=== PATIENT | female | born 2005 | race Caucasian/White ===

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

== ENCOUNTER 2024-05-29 10:23 | Emergency (ER) | payer BC, SELFPAY ==
[2024-05-29 10:23] VITALS: BP 134/80; PULSE 85; RESP 18; TEMP 37; O2SAT 99; BMI 22.2
--- NOTE | 2024-05-29 10:36 | ED.VIS.DENTA ---
HPI History of Present Illness Chief Complaint: Dental Detail of Chief Complaint: Dental pain Informant: patient Narrative Narrative: Patient presents with left abdominal pain that started 4 days ago. Denies any trauma to her teeth. Patient denies fever. She states last evening she started having vomiting and threw up about 5 or 6 times and also started having diarrhea. She did not know if she developed an infection in her teeth and presents for evaluation. She denies any abdominal pain. She denies urinary symptoms. Denies sick contacts. PFSH [facility] Medical History (Updated 05/29/24 @ 10:[address] Ambar Weaver, DO) Irritable bowel syndrome with constipation Home Medications ?Medication ?Instructions ?Recorded ?Last Taken ?Type drospirenone 3 mg-ethinyl 1 tab PO DAILY PRN CONTROL 01/07/22 Unknown History estradiol 0.02 mg tablet (Vestura (28)) linaclotide 145 mcg capsule 145 mcg PO DAILY 01/07/22 Unknown History (Linzess) hydrocodone-acetaminophen 5-325mg 1 tab PO Q6H PRN PRN Pain 3 days 09/26/23 Unknown Rx 5mg-325mg #10 TABLETS ondansetron 4 mg disintegrating 4 mg PO Q8H PRN PRN Nausea #10 tabs 09/26/23 Unknown Rx tablet clindamycin HCl 300 mg capsule 300 mg PO Q6H #40 CAPSULES 05/29/24 Unknown Rx (Cleocin HCl) ondansetron 4 mg disintegrating 4 mg PO Q8H PRN PRN Nausea #10 tabs 05/29/24 Unknown Rx tablet oxycodone-acetaminophen 5 mg-325 1 tab PO Q8H PRN pain 3 days #10 05/29/24 Unknown Rx mg tablet (Percocet) tabs Allergy/AdvReac Type Severity Reaction Status Date / Time No Known Allergies Allergy Verified 09/26/23 17:05 Family History (Updated 09/26/23 @ 18:21 by Thong Garrett) Other Heart disease Surgical History no surgical history Social History household members: significant other and children Smoking Status: Never smoker ROS ROS ED Review of Systems ROS Unobtainable: other Constitutional Constitutional ED: Reports lethargy; Denies chills, fever(s), sweats or weight loss Eyes Eyes: Denies blurry vision, change in vision or diplopia ENT ENT ED: Reports other Details: Dental pain ; Denies rhinorrhea or sore throat Cardiovascular Cardiovascular: Denies chest pain, orthopnea or racing heartbeat Respiratory/Chest Respiratory/Chest: Denies cough, dyspnea, dyspnea on exertion, orthopnea or sputum Gastrointestinal Gastrointestinal: Reports diarrhea, nausea and vomiting; Denies abdominal pain Genitourinary Genitourinary ED: Denies dysuria, hematuria or urinary frequency Musculoskeletal Musculoskeletal: Denies arthralgias, back pain, myalgias or neck pain Integumentary Denies abscess, Abrasions or rash Neurologic Neurologic: Denies headache(s) or weakness Psychiatric Psychiatric: Denies anxiety, depression or suicidal thoughts Endocrine Endocrinology: Denies polydipsia, polyphagia or polyuria Hematologic/Lymphatic Hematologic/Lymphatic: Denies easy bleeding, easy bruising or lymphadenopathy Allergic/Immunologic Allergic/Immunologic ED: Denies mouth swelling, tongue swelling or urticaria EXAM Physical Exam Const Vital Signs: 05/29/24 10:23 Temperature 98.6 F Temperature Source Oral Pulse Rate 85 Respiratory Rate 18 Blood Pressure 134/80 H Blood Pressure Mean 98 Pulse Ox 99 Oxygen Delivery Method Room Air Positive well nourished and well developed General Appearance ED: well developed and NAD HEENT Reports TM's clear and moist mucous membranes HEENT Narrative: Tenderness palpation to tooth #10 left upper incisor. There is no gingival erythema or abscess noted. There is no facial swelling or cellulitic changes. normocephalic and atraumatic; Negative for trauma or tenderness Tympanic Membrane ED: Yes TM's clear Eyes PERRL and EOMs intact bilaterally General Eye ED: Negative for pale conjunctiva or scleral icterus Neck no lymphadenopathy, supple and no JVD General: Negative for tenderness Chest Wall inspection of chest normal and palpation of chest normal Chest: Negative for tenderness Resp normal respiratory effort and clear to auscultation bilaterally Effort and Inspection: Negative for respiratory distress or pain with movement Auscultation: Negative for rhonchi, wheezes or diminished lung sounds Cardio regular rate, regular rhythm, S1 normal heart sound, S2 normal heart sound and no murmurs Peripheral Pulses: pulses 2+ throughout GI normal to inspection, nondistended, normoactive bowel sounds, soft to palpation, non-tender, non-distended and no masses Back/Spine no CVA tenderness and no thoracic nor lumbar tenderness Extremity normal to inspection General Extremety ED: Negative for edema General Extremity: Negative for edema Neuro oriented x3, CN's II-XII intact bilaterally, no sensory deficits noted and gait normal Sensorium / Orientation: awake, alert, oriented to person, oriented to place and oriented to time Motor Exam: strength 5/5 throughout and strength abnormal Psych mental status grossly normal Skin no rashes or lesions noted and no wounds MDM MDM MDM Narrative Medical decision making narrative: Patient presents with dental pain. Also started with vomiting and diarrhea last evening. Clinically I do not feel the 2 are related. Will start her on clindamycin and give Percocet for pain and advised to follow-up with the dentist. I suspect she likely also has a viral gastroenteritis. Will also give a prescription for Zofran. Discharge Plan Triage Chief Complaint: Dental ED Provider: Ambar Weaver Dx/Rx/DC Orders Clinical Impression: Pain, dental, Viral gastroenteritis Instructions: ED Dental Pain, ED Gastroenteritis, Viral (Adult) Prescriptions: New clindamycin HCl [Cleocin HCl] 300 mg capsule 300 mg PO Q6H Qty: 40 0RF oxycodone-acetaminophen [Percocet] 5-325 mg tablet 1 tab PO Q8H PRN (Reason: pain) 3 Days Qty: 10 0RF ondansetron 4 mg tablet,disintegrating 4 mg PO Q8H PRN PRN (Reason: Nausea) Qty: 10 0RF No Action drospirenone-ethinyl estradiol [Vestura (28)] 3-0.02 mg tablet 1 tab PO DAILY PRN (Reason: CONTROL) Patient Comments: TAKE 1 TABLET BY MOUTH EVERY DAY Linzess 145 mcg capsule 145 mcg PO DAILY hydrocodone-acetaminophen 5-325 mg tablet 1 tab PO Q6H PRN PRN (Reason: Pain) 3 Days Qty: 10 0RF ondansetron 4 mg tablet,disintegrating 4 mg PO Q8H PRN PRN (Reason: Nausea) Qty: 10 0RF Primary Care Provider: Lawrence Matias Referrals: Lawrence Matias MD [Primary Care Provider] - Activity Restrictions/Additional Instructions: Follow-up with a dentist at the earliest possible time Print Language: Indonesian Disposition Disposition: Home, Self Care
[2024-05-29] MEDS: Ondansetron ODT 4 MG Tablet PO (10:38)
[2024-05-29] MEDS: oxyCODONE 5 MG Tablet PO (10:38)
[2024-05-29] MEDS: Clindamycin HCl 150 MG Capsule 300 MG PO (10:38)
[2024-05-29 10:46] VITALS: BP 130/70; PULSE 70; RESP 16; TEMP 37; O2SAT 99
== END 2024-05-29 10:52 | disposition home or self-care (01) ==
LOC: ED 10:49
PROVIDERS: Emergency Provider Emergency Medicine; PCP Family Medicine; Visit Provider Emergency Medicine
DX: A08.4 Viral intestinal infection, unspecified (principal); K08.89 Other specified disorders of teeth and supporting structures
CPT/HCPCS: 99283

== ENCOUNTER 2024-05-30 02:28 | Emergency (ER) | payer BC, SELFPAY ==
[2024-05-30 02:29] VITALS: BP 141/88; PULSE 76; RESP 16; TEMP 36.7; O2SAT 98; BMI 22.7
[2024-05-30 02:32] VITALS: BP 142/82; PULSE 78; RESP 16; TEMP 36.7; O2SAT 98
--- NOTE | 2024-05-30 02:40 | EDS_ITS ---
HPI History of Present Illness Chief Complaint: Nausea/Vomiting Informant: patient Narrative Narrative: 18-year-old female presenting to the emergency room following. Patient states that she came to the emergency room this morning and she had some swelling on the roof of her mouth that is not worse. She states that they told me nothing was wrong and they did not have an infection they sent me home with some Zofran for my vomiting. She states they tried to tell me I had the stomach flu. Looking at the note I see that he did feel that there was a dental infection and they prescribed her clindamycin as well as Percocet. She followed up with a dentist today and they are recommending a root canal. She also has been having diarrhea and states I also have IBS and that is not any different. Patient does not have subjective fever at home. She states that this evening the Zofran wore off and she began to vomit again. She states she took 2 Zofran after that and continues to vomit. Patient denies any prior abdominal surgery. [facility] Medical History Marijuana use Irritable bowel syndrome with constipation Home Medications ?Medication ?Instructions ?Recorded ?Last Taken ?Type drospirenone 3 mg-ethinyl 1 tab PO DAILY PRN CON TROL 01/07/22 Unknown History estradiol 0.02 mg tablet (Vestura (28)) ondansetron 4 mg disintegrating 4 mg PO Q8H PRN PRN Na usea #10 tabs 09/26/23 Unknown Rx tablet clindamycin HCl 300 mg capsule 300 mg PO Q6H #40 CAPSU LES 05/29/24 Unknown Rx (Cleocin HCl) ondansetron 4 mg disintegrating 4 mg PO Q8H PRN PRN Na usea #10 tabs 05/29/24 Unknown Rx tablet oxycodone-acetaminophen 5 mg-325 1 tab PO Q8H PRN DENT AL PAIN 3 05/29/24 Unknown Rx mg tablet (Percocet) days #10 tabs Allergy/AdvReac Type Severity Reaction Status Date / Time No Known Allergies Allergy Verified 05/30/24 02:29 Family History Other Heart disease Social History household members: significant other and children Smoking Status: Current every day smoker tobacco type: cigarettes and e- cigarettes ROS ROS ED Constitutional Constitutional ED: Denies chills or weight loss Eyes Eyes: Denies change in vision or diplopia ENT ENT ED: Reports other Details: Dental pain roof of mouth swelling ; Denies ear pain, rhinorrhea or sore throat Cardiovascular Cardiovascular: Denies chest pain, orthopnea, palpitations or racing heartbeat Respiratory/Chest Respiratory/Chest: Denies cough, dyspnea or orthopnea Gastrointestinal Gastrointestinal: Reports diarrhea, nausea and vomiting; Denies abdominal pain Genitourinary Genitourinary ED: Denies dysuria, hematuria or urinary frequency Musculoskeletal Musculoskeletal: Denies arthralgias or myalgias Integumentary Denies abscess or rash Neurologic Neurologic: Denies headache(s) or weakness Psychiatric Psychiatric: Denies anxiety, depression, suicidal ideation or suicidal thoughts Endocrine Endocrinology: Denies polydipsia, polyphagia or polyuria Allergic/Immunologic Allergic/Immunologic ED: Denies mouth swelling, tongue swelling or urticaria EXAM Physical Exam Narrative Exam Narrative: Well-appearing 18-year-old sitting comfortably in the bed in no apparent distress. She has noted to not be tachycardic or hypotensive. Const Vital Signs: 05/30/24 02:29 05/30/24 02:32 Temperature 98.1 F 98.1 F Temperature Source Oral Oral Pulse Rate 76 78 Respiratory Rate 16 16 Blood Pressure 141/88 H 142/82 H Blood Pressure Mean 105 102 Pulse Ox 98 98 Oxygen Delivery Method Room Air Room Air Positive well nourished and well developed General Appearance ED: well developed and NAD HEENT Reports normocephalic, head/scalp atraumatic and moist mucous membranes HEENT Narrative: There are some focal swelling on the roof of the mouth just near the 1011 tooth. There are some mild gum swelling on the anterior gumline as well. I do not appreciate significant erythema. Is not fluctuant. There is no trismus. Floor the mouth is soft. No overlying facial erythema is noted. Eyes PERRL and EOMs intact bilaterally Neck no lymphadenopathy, supple and no JVD Resp normal respiratory effort and clear to auscultation bilaterally Cardio regular rate, regular rhythm and no murmurs GI normal to inspection, nondistended, normoactive bowel sounds and non-tender Palpation: soft Back/Spine no CVA tenderness and normal ROM Extremity normal to inspection General Extremety ED: Negative for edema General Extremity: Negative for edema Neuro oriented x3 and CN's II-XII intact bilaterally Sensorium / Orientation: alert Motor Exam: strength 5/5 throughout Psych mental status grossly normal Mood & Affect: Negative for depressed or tearful Skin no rashes or lesions noted and no wounds MDM MDM MDM Narrative Medical decision making narrative: Differential diagnosis includes dental abscess Crispin's angina facial cellulitis gastroenteritis team medication action dehydration electrolyte abnormalities acute kidney injury pancreatitis biliary colic Patient is afebrile. She is not tachycardic or hypotensive. Moist mucous membranes. There is evidence of dental infection. Patient blood work shows a white count of 12.7 hemoglobin is 12.7. test is negative. Normal liver enzymes normal lipase. Normal BUN/creatinine. Glucose of 111. Patient received Toradol as well as Zofran. She passed p.o. challenge. She continue home medications follow-up with dentistry History & Record Review Discussion w/independent historian: Patient Additional record(s) reviewed:: Prior ED visit Lab Data Attestation: I reviewed the patient's lab results. Labs: Laboratory Results - last 24 hr 05/30/24 02:48 WBC 12.7 H RBC 4.42 Hgb 12.7 Hct 40.3 MCV 91.2 MCH 28.7 MCHC 31.5 L RDW Std Deviation 49.5 H RDW Coeff of Angelito 14.7 H Plt Count 161 MPV 9.8 Immature Gran % (Auto) 0.300 Neut % (Auto) 74.3 H Lymph % (Auto) 15.2 L [place] % (Auto) 9.3 Eos % (Auto) 0.6 Baso % (Auto) 0.3 Absolute Neuts (auto) 9.5 H Absolute Lymphs (auto) 1.93 Nucleated RBC % 0 Sodium 138 Potassium 4.0 Chloride 107 Carbon Dioxide 18.3 L Anion Gap 12 BUN 9 Creatinine 0.82 Estim Creat Clear Calc 107.31 Est GFR (MDRD) Non-Af 105 BUN/Creatinine Ratio 10.8 Glucose 111 H Calcium 9.3 Total Bilirubin 0.31 Direct Bilirubin 0.15 AST 21 ALT 15 Alkaline Phosphatase 52 Total Protein 6.8 Albumin 3.8 Globulin 3.0 Lipase 18 Serum , Qual NEGATIVE Discharge Plan Triage Chief Complaint: Nausea/Vomiting Other Complaint: Abscess ED Provider: Sharath Butts Dx/Rx/DC Orders Clinical Impression: Vomiting, Abscess, dental Instructions: Dental Abscess, ED Vomiting (Adult) Prescriptions: No Action drospirenone-ethinyl estradiol [Vestura (28)] 3-0.02 mg tablet 1 tab PO DAILY PRN (Reason: CONTROL) Patient Comments: TAKE 1 TABLET BY MOUTH EVERY DAY ondansetron 4 mg tablet,disintegrating 4 mg PO Q8H PRN PRN (Reason: Nausea) Qty: 10 0RF clindamycin HCl [Cleocin HCl] 300 mg capsule 300 mg PO Q6H Qty: 40 0RF oxycodone-acetaminophen [Percocet] 5-325 mg tablet 1 tab PO Q8H PRN (Reason: DENTAL PAIN) 3 Days Qty: 10 0RF ondansetron 4 mg tablet,disintegrating 4 mg PO Q8H PRN PRN (Reason: Nausea) Qty: 10 0RF Primary Care Provider: Lawrence Matias Referrals: Lawrence Matias MD [Primary Care Provider] - As Needed Activity Restrictions/Additional Instructions: Be sure to follow-up with dentistry. Continue your home medications. Zofran as needed for vomiting Print Language: Cambodian Disposition Disposition: Home, Self Care
[2024-05-30] MEDS: Ondansetron 4 MG/2 ML Vial IV (02:49)
[2024-05-30] MEDS: Ketorolac 30 MG/ML Syringe IV (02:49)
[2024-05-30 03:29] LABS: AST(SGOT) 21 U/L (<=31); Alanine Aminotransfer ALT/SGPT 15 U/L (<=34); Albumin, Serum 3.8 g/dL (3.5-5.0); Alkaline Phosphatase 52 U/L (35-104); Anion Gap 12 (5-15); BUN 9 mg/dL (4-19); BUN/Creat Ratio 10.8 RATIO (10-20); Bilirubin, Direct 0.15 mg/dL (0.00-0.30); Calcium,Total 9.3 mg/dL (7.6-11.0); Carbon Dioxide 18.3 mmol/L (21.0-32.0); Chloride 107 mmol/L (98-108); Creatinine, Serum 0.82 mg/dL (0.70-1.20); EST Glomerular Filtration Rate 105 (>60); Estimated Creatinine Clearance 107.31 ml/min (50-250); Glucose 111 mg/dL (70-99); Lipase 18 U/L (13-75); Protein, Total 6.8 g/dL (5.9-8.4); Sodium Level 138 mmol/L (133-145); Total Bilirubin 0.31 mg/dL (0.00-1.30)
[2024-05-30 03:30] LABS: Absolute Lymphocyte Count 1.93 X10^3/uL (0.83-4.51); Absolute Neutrophil Count 9.5 X10^3/uL (2.0-7.7); Basophil# 0.04 X10^3/uL; Basophil% 0.3 % (0-1); Eosinophil# 0.07 X10^3/uL; Eosinophils% 0.6 % (0-5); Hematocrit 40.3 % (37-47); Hemoglobin 12.7 g/dL (12.0-15.0); Lymphocyte # 1.93 X10^3/ul (0.83-4.51); Lymphocyte % 15.2 % (19-41); Mean Corp Hgb Conc 31.5 g/dL (32-36); Mean Corpuscular Hgb 28.7 pg (27.0-32.0); Mean Corpuscular Volume 91.2 fL (81-99); Mean Platelet Vol. 9.8 fl (6.2-12.0); Monocyte# 1.18 X10^3/uL; Monocyte% 9.3 % (0-10); NRBC Flagged by Analyzer 0 % (0-5); Neutrophil # 9.45 X10^3/uL (2.7-7.7); Neutrophil % 74.3 % (47-70); Platelet Count 161 K/mm3 (150-450); RBC Distribution Width CV 14.7 % (11.6-14.6); RBC Distribution Width SD 49.5 fl (35.1-43.9); Red Blood Count 4.42 M/mm3 (4.2-5.4); White Blood Count 12.7 K/mm3 (4.4-11.0)
[2024-05-30 03:39] LABS: Internal QC Validated? YES +Cl - CLEAR BKGD; Pregnancy, Serum, hCG Quali. NEGATIVE Negative
[2024-05-30 04:33] VITALS: BP 129/81; PULSE 71; RESP 14; TEMP 36.8; O2SAT 99
== END 2024-05-30 04:38 | disposition home or self-care (01) ==
PROVIDERS: Emergency Provider Emergency Medicine; PCP Family Medicine; Visit Provider Emergency Medicine
DX: K04.7 Periapical abscess without sinus (principal); R19.7 Diarrhea, unspecified; R11.2 Nausea with vomiting, unspecified; F17.210 Nicotine dependence, cigarettes, uncomplicated; K58.1 Irritable bowel syndrome with constipation
CPT/HCPCS: 80048; 80076; 83690; 84703; 85025; 96374; 96375; 99285; A4216; J2405